=== PATIENT | male | born 1980 | race Caucasian/White ===

== ENCOUNTER 2020-01-17 06:09 | Day surgery (SDC) | payer OTHER ==
[2020-01-10 11:07] VITALS: BMI 30.9
[~2020-01-17 06:09] MED LIST: BUPIVACAINE HCL/PF 0.25% (2.5MG/ML) 10 ML VIAL IJ ONE
[2020-01-17] MEDS ORDERED: PROPOFOL 20 ML ONE ×2 (07:12)
[2020-01-17] MEDS ORDERED: EPHEDRINE SULFATE/0.9% NACL/PF 50 MG/10 ML SYRINGE NR ONE (07:13)
[2020-01-17] MEDS ORDERED: MIDAZOLAM HCL 2 MG/2 ML SINGLE DOSE VIAL ONE ×2 (07:13)
[2020-01-17] MEDS ORDERED: LIDOCAINE HCL/PF 2% SDV 5ML VIAL ONE (07:13)
[2020-01-17] MEDS ORDERED: SUCCINYLCHOLINE CHLORIDE 200 MG/10 ML SYRINGE ONE (07:13)
[2020-01-17] MEDS ORDERED: oxyCODONE HCL 5 MG TABLET PO PRN ×2 (07:37)
[2020-01-17] MEDS ORDERED: ONDANSETRON 4 MG/2 ML VIAL IVPUSH PRN (07:37)
[2020-01-17] MEDS ORDERED: BUPIVACAINE HCL/PF 2.5 MG/ML - 30 ML VIAL IJ ONE (07:43)
[2020-01-17] MEDS ORDERED: BUPIVACAINE HCL/PF 0.5% (5MG/ML) 10 ML VIAL ONE (07:43)
[2020-01-17] MEDS ORDERED: KETOROLAC TROMETHAMINE 30 MG/1 ML VIAL ONE (07:44)
[2020-01-17] MEDS ORDERED: DEXAMETHASONE SOD PHOSPHATE 4 MG/1 ML VIAL ONE (07:44)
[2020-01-17] MEDS ORDERED: ONDANSETRON 4 MG/2 ML VIAL ONE (07:44)
[2020-01-17] MEDS ORDERED: LACTATED RINGERS SOLUTION 1,000 ML IV SCH (07:45)
[2020-01-17] MEDS ORDERED: DESFLURANE GAS 240 ML BOTTLE IH ONE (08:05)
[2020-01-17] MEDS ORDERED: BUPIVACAINE HCL/PF 0.25% (2.5MG/ML) 10 ML VIAL IJ ONE (08:16)
--- NOTE | 2020-01-17 09:34 | OP ---
DATE OF OPERATION: 01/17/2020 PREOPERATIVE DIAGNOSIS: Left carpal tunnel syndrome. POSTOPERATIVE DIAGNOSIS: Left carpal tunnel syndrome. OPERATIVE PROCEDURE: Left endoscopic carpal tunnel release. SURGEON: Jesus Guevara MD ANESTHESIA: General. COMPLICATIONS: None. ESTIMATED BLOOD LOSS: Minimal. INDICATION FOR PROCEDURE: The patient presented with the above finding, indicated for operative treatment. Risks, benefits, alternatives were discussed with the patient at length. Proper informed consent was obtained. DESCRIPTION OF PROCEDURE: After preoperative identification of the patient and correct operative site, patient brought to the operating room, placed supine on the table with all prominences well padded. General anesthesia was given. Left upper extremity was prepped and draped in the usual sterile fashion. A well-padded tourniquet was placed over the sterile prep. Esmarch bandage used to exsanguinate the left upper extremity. Tourniquet was inflated to 250 mmHg. Transverse incision was made over the proximal wrist crease. Incision was taken sharply through the skin with blunt and sharp dissection through subcutaneous tissues, taking care to stay ulnar to the palmaris longus tendon to protect the palmar cutaneous nerve. The antebrachial fascia was divided and the carpal canal was entered. Elevator was used to free soft tissue off the undersurface of the transverse carpal ligament. Hamate finder and dilators were used to prepare the canal, and the Micro[employer] endoscopic carpal tunnel release system was used and inserted to dislodge the transverse carpal ligament. At all times throughout the procedure, excellent visualization was achieved, and at no time was any soft tissue allowed to interpose between the blade and the undersurface of the transverse carpal ligament. The blade was deployed and the transverse carpal ligament was divided. The distal 4 cm of the antebrachial fascia was divided under direct visualization with loupe magnification as well. This provided complete release of the median nerve at the wrist. Wound was irrigated and repaired with 5-0 Monocryl suture. Steri-Strips and sterile dressings were applied. Patient was reversed from anesthesia, brought to the recovery room in stable condition. He tolerated the procedure well. JESUS GUEVARA M.D. [id number]
[2020-01-17 10:39] VITALS: BP 132/90; PULSE 75; TEMP 97.6
== END 2020-01-17 09:40 | disposition home or self-care (01) ==
LOC: FASU 06:09
PROVIDERS: ATTEND Orthopaedic Surgery Hand Surgery
PROC: 01N54ZZ Release Median Nerve, Percutaneous Endoscopic Approach (ICD-10-PCS; principal; 2020-01-17 08:07)
DX: G56.02 Carpal tunnel syndrome, left upper limb (principal)
CPT/HCPCS: 94760